=== PATIENT | female | born 2000 | race Caucasian/White ===

== ENCOUNTER 2023-10-17 08:27 | Emergency (ER) | payer OTHER ==
[~2023-10-17] VITALS: Ht 167.6 cm; Wt 86.2 kg
[~2023-10-17 08:27] MED LIST: ALBU90OI INH; AZIT250 PO; CEPH500 PO; CODACE30 PO; ONDA4 PO; PERM5TC TOP; PRED10 PO; PRED20 PO
== END 2023-10-17 09:09 | disposition home or self-care (01) ==
LOC: ER 08:27
DX: S02.5XXA Fracture of tooth (traumatic), initial encounter for closed fracture (principal); K08.89 Other specified disorders of teeth and supporting structures; X58.XXXA Exposure to other specified factors, initial encounter
CPT/HCPCS: 99282

== ENCOUNTER 2024-12-30 08:03 | Day surgery (SDC) | payer OTHER ==
[~2024-12-30] VITALS: Ht 167.6 cm; Wt 97.8 kg
--- NOTE | 2024-12-30 08:43 | NUR ---
12/30/24 0843 KEYUR MARIA PT READY FOR OR, CALL LIGHT IN REACH. ATTEMPTED TO BRING BACK FAMILY FROM WAITING ROOM, BUT NO ONE PRESENT. ENGAGED IN PRE OP TEACHING.
[2024-12-30] MEDS ORDERED: FentaNYL Citrate 50 MCG/ML 2 ML Injection ONE ×2 (09:27→10:29)
[2024-12-30] MEDS ORDERED: Midazolam HCl 1MG / ML 2ML Vial ONE (09:27)
[2024-12-30] MEDS ORDERED: Rocuronium Bromide 10 MG/ML 5ML Injection IV ONE (09:29)
[2024-12-30] MEDS ORDERED: Dexamethasone Sod Phos 10 MG/ML 1ML VIAL ONE (09:40)
[2024-12-30] MEDS ORDERED: Bupivacaine 0.5% W/EPI 1:200000 SDV 30ML INJ ONE (09:48)
--- NOTE | 2024-12-30 09:51 | NUR ---
12/30/24 0951 Corey Anderson ABDOMINAL AREA PREPPED BY LORENA SUPERVISOR [employer] CONDITIONING INSTALLER WITH CLORPREP. CYDNEY AREA PREPPED BY KASHIF RN WITH CLORHEXADINE DILUTED 1:1 W/ NS.
[2024-12-30] MEDS ORDERED: Sugammadex Sodium 200 MG/2ML SDV (100 MG/ML) ONE (09:55)
[2024-12-30] MEDS ORDERED: Ondansetron HCl 2 MG / ML 2ML Vial ONE (09:55)
[2024-12-30] MEDS ORDERED: Ketorolac Tromethamine 30mg Vial ONE (10:29)
--- NOTE | 2024-12-30 10:42 | NUR ---
12/30/24 1042 Jeannette Mccarthy PT TO PACU YELLING, RESTLESS AND EMOTIONAL. REPORT RECEIVED FROM RN AND MARIO. RN X2 AT BEDSIDE ATTEMPTING TO REASSURE PATIENT. VSS. PT DOES NOT FOLLOW COMMANDS, ANSWERS QUESTIONS. PT STATES "I CAN'T DO THIS ANYMORE, MY STOMACH HURTS" PT GIVEN PAIN MEDICATION PER ORDERS. PT CURRENTLY ASLEEP, SUPINE, O2 95% ON ROOM AIR.
--- NOTE | 2024-12-30 11:26 | NUR ---
12/30/[address] AT BEDSIDE
[2024-12-30] MEDS ORDERED: OxyCODONE 5 mg/Acetamin 325 mg TABLET ONE (11:41)
== END 2024-12-30 11:52 | disposition home or self-care (01) ==
LOC: ORSCSDS 08:03
PROVIDERS: Obstetrics & Gynecology
PROC: 0UB74ZZ Excision of Bilateral Fallopian Tubes, Percutaneous Endoscopic Approach (ICD-10-PCS; principal; 2024-12-30 09:45)
PROC: 8E0W4CZ Robotic Assisted Procedure of Trunk Region, Percutaneous Endoscopic Approach (ICD-10-PCS; principal; 2024-12-30 09:45)
DX: Z30.2 Encounter for sterilization (principal); E66.01 Morbid (severe) obesity due to excess calories; Z68.34 Body mass index [BMI] 34.0-34.9, adult; K21.9 Gastro-esophageal reflux disease without esophagitis; Z87.891 Personal history of nicotine dependence
CPT/HCPCS: 88302; A9270; J1100; J1885; J2250; J2405; J2704; J3010

== ENCOUNTER → 2025-04-25 | Outpatient (CLI) | payer OTHER | LOC: LAB SHORT 12:59 → LAB 12:59 | DX: L73.9 Follicular disorder, unspecified (principal) | CPT/HCPCS: 87075; 87076; 87205 ==